=== PATIENT | male | born 1985 ===

== ENCOUNTER 2018-05-28 12:06 | Emergency (ER) | payer OTHER ==
[~2018-05-28] VITALS: Ht 182.9 cm; Wt 136.1 kg
== END 2018-05-28 12:45 | disposition home or self-care (01) ==
LOC: ER 12:06
DX: S61.042A Puncture wound with foreign body of left thumb without damage to nail, initial encounter (principal); W46.0XXA Contact with hypodermic needle, initial encounter; Y93.89 Activity, other specified; Y92.69 Other specified industrial and construction area as the place of occurrence of the external cause; Y99.8 Other external cause status